=== PATIENT | male | born 1985 | race African-American/Black ===

== ENCOUNTER 2017-01-31 13:22 | Emergency (ER) | payer MEDICAID, OTHER ==
[~2017-01-31] VITALS: Ht 172.7 cm; Wt 155.0 kg
[2017-01-31 13:29] VITALS: BP 146/85
[2017-01-31] MEDS ORDERED: CEFTRIAXONE SODIUM 250 MG/VIAL IM ONE (16:15)
[2017-01-31] MEDS ORDERED: AZITHROMYCIN 500 MG TABLET PO ONE (16:15)
[2017-01-31 16:34] LABS: CLARITY URINE CLOUDY (CLEAR); COLOR URINE YELLOW (YELLOW); GLUCOSE URINE NEGATIVE (NEGATIVE); KETONES URINE NEGATIVE (NEGATIVE); LEUKOCYTE ESTERASE URINE 3+ (NEGATIVE); NITRITE URINE NEGATIVE (NEGATIVE); OCCULT BLOOD URINE 1+ (NEGATIVE); PH URINE 7.5 (4.5-8.0); PROTEIN URINE NEGATIVE (NEGATIVE); SPECIFIC GRAVITY URINE 1.017 (1.005-1.030)
== END 2017-01-31 17:38 | disposition home or self-care (01) ==
LOC: ER 14:01
DX: A64 Unspecified sexually transmitted disease (principal); N39.0 Urinary tract infection, site not specified
CPT/HCPCS: 81001; 96372; 99283; J0696